=== PATIENT | female | born 1950 | race African-American/Black ===

== ENCOUNTER 2023-08-14 11:05 | Emergency (ER) | payer MEDICAID ==
[~2023-08-14] VITALS: Ht 152.4 cm; Wt 75.0 kg
[2023-08-14 13:55] VITALS: BP 116/74; PULSE 72; RESP 18; TEMP 98
[2023-08-14] MEDS: PredniSONE 20 MG TABLET PO ONE (15:10)
[2023-08-14] MEDS: HydrOXYzine PAMOATE 25 MG CAPSULE PO ONE (15:10)
[2023-08-14 16:27] LABS: ALBUMIN 3.2 g/dL (3.4-5.0); BILIRUBIN,TOTAL 0.6 mg/dL (0.1-1.0); CALCIUM, TOTAL 9.7 mg/dL (8.8-10.5); CREATININE 1.26 mg/dL (0.60-1.30); TOTAL PROTEIN, SERUM 7.5 g/dL (6.4-8.2)
[2023-08-14] MEDS ORDERED: PRED-554 PO (16:58)
== END 2023-08-14 17:10 | disposition home or self-care (01) ==
LOC: EMS 11:05
DX: M13.852 Other specified arthritis, left hip (principal); T78.49XA Other allergy, initial encounter; X58.XXXA Exposure to other specified factors, initial encounter
CPT/HCPCS: 99284; 93971; 80053; 36415; 73503; 73562; 74022; J7512